=== PATIENT | male | born 1950 | race Caucasian/White ===

== ENCOUNTER 2022-04-15 07:00 | Day surgery (SDC) | payer OTHER ==
[~2022-04-15] VITALS: Ht 139.7 cm; Wt 63.5 kg
[~2022-04-15 07:00] MED LIST: CEFAZOLIN SOD 1 GM/ ISO 50 ML PREMIX IV ONE
[2022-04-15] MEDS ORDERED: ACETAMINOPHEN I.V. 1000 MG 100 ML IV ONE (10:26)
[2022-04-15] MEDS ORDERED: ROCURONIUM BROMIDE 10 MG/ML (ZEMURON) IV ONE (10:30)
[2022-04-15] MEDS ORDERED: fentaNYL CITRATE 250 MCG/5 ML AMP IV ONE (10:30)
[2022-04-15] MEDS ORDERED: WATER FOR IRRIGATION,STERILE 1,000 ML IRRIG.SOLN IR ONE (10:30)
[2022-04-15] MEDS ORDERED: SEVOFLURANE 15 MIN GAS INH ONE (10:30)
[2022-04-15] MEDS ORDERED: BUPIVACAINE /PF 0.25% 30 ML VIAL INJ ONE (10:30)
[2022-04-15] MEDS ORDERED: LR 1,000 ML IV.SOLN IV ONE (10:30)
[2022-04-15] MEDS ORDERED: MIDAZOLAM HCL 5 MG/5 ML VIAL IVP ONE (10:30)
[2022-04-15] MEDS ORDERED: PROPOFOL 200MG/ 20ML VIAL (DIPRIVAN) IV ONE (10:30)
[2022-04-15] MEDS ORDERED: KETOROLAC TROMETHAMINE 30 MG VIAL IVP ONE (10:30)
[2022-04-15] MEDS ORDERED: DEXAMETHASONE SOD PHOSPHATE 4 MG/ML VIAL IVP ONE (10:30)
[2022-04-15] MEDS ORDERED: ONDANSETRON HCL 4 MG/2 ML VIAL IVP ONE (10:30)
[2022-04-15] MEDS ORDERED: hydrALAZINE HCL 20 MG/ML VIAL IVP PRN (11:15)
[2022-04-15] MEDS ORDERED: MEPERIDINE HCL/PF 25 MG/ML DISP.SYRIN IVP PRN (11:15)
[2022-04-15] MEDS ORDERED: LR 1,000 ML IV SCH (11:15)
[2022-04-15] MEDS ORDERED: MIDAZOLAM HCL 2 MG/2 ML VIAL (VERSED) IVP PRN (11:15)
[2022-04-15] MEDS ORDERED: HYDROmorphone 1 MG/ML INJ. CARTRIDGE IVP PRN ×2 (11:15)
[2022-04-15] MEDS ORDERED: METOCLOPRAMIDE HCL 10 MG/2 ML VIAL IVP PRN (11:15)
[2022-04-15] MEDS ORDERED: LABETALOL 100 MG/ 20ML VIAL IVP PRN (11:15)
[2022-04-15] MEDS ORDERED: D5/0.45 NS 1,000 ML IV SCH (11:45)
[2022-04-15] MEDS ORDERED: HYDROcodone/ACETAMIN 5-325 MG TAB (NORCO/ VICODIN) PO PRN (14:00)
[2022-04-15 14:12] VITALS: BP_SYST 133
== END 2022-04-15 14:00 | disposition home or self-care (01) ==
LOC: SDS 07:00 → SMU 07:01 → EDSTATUS 13:50 → SDS 14:00
PROVIDERS: ATTEND Colon & Rectal Surgery
DX: K40.90 Unilateral inguinal hernia, without obstruction or gangrene, not specified as recurrent (principal); I48.91 Unspecified atrial fibrillation; I10 Essential (primary) hypertension; Z87.891 Personal history of nicotine dependence; Z20.822 Contact with and (suspected) exposure to COVID-19; Z79.899 Other long term (current) drug therapy
CPT/HCPCS: 36415 ×2; 49505; 87426; C1781; J0131; J0690; J1100; J1885; J2250; J2405; J2704; J3010; J3490; J7120; U0003

== ENCOUNTER 2023-10-10 12:10 | Observation (INO) | payer OTHER ==
[~2023-10-10] VITALS: Ht 170.2 cm; Wt 63.2 kg
[2023-10-10 12:18] VITALS: BP_SYST 153; PULSE 109; RESP 19; TEMP 98; O2SAT 89
[2023-10-10] MEDS ORDERED: MORPHINE 4 MG INJ. 4 MG/ML VIAL IVP ONE (13:15)
[2023-10-10] MEDS ORDERED: ONDANSETRON HCL 4 MG/2 ML VIAL IVP ONE (13:15)
[2023-10-10 13:31] LABS: BASOPHILS % (AUTO) 0.4 % (0.0-2.0); HEMATOCRIT 42.1 % (36-54); LYMPHOCYTES # (AUTO) 0.5 K/uL (1.0-5.5); LYMPHOCYTES % (AUTO) 5.2 % (20.5-51.5); MEAN CORPUSCULAR HEMOGLOBIN 32 pg (27-31); MEAN CORPUSCULAR HGB CONC 33 % (32-36); MEAN CORPUSCULAR VOLUME 96 fL (79.0-98.0); MONOCYTES # (AUTO) 0.9 K/uL (0.0-1.0); MONOCYTES % (AUTO) 9.5 % (1.7-9.3); NEUTROPHILS % (AUTO) 84.9 % (40.0-70.0); PLATELET COUNT (AUTO) 269 K/uL (130-430); RED CELL DISTRIBUTION WIDTH 14.8 % (9.0-15.0); WHITE BLOOD COUNT (AUTO) 9.5 K/uL (4.8-10.8)
[2023-10-10 13:35] LABS: ANION GAP 11 (5-15); CALCIUM 9.5 mg/dL (8.4-11.0); CARBON DIOXIDE 25 mmol/L (23-29); CHLORIDE 99 mmol/L (98-107); CREATININE 0.93 mg/dL (0.55-1.30); GLUCOSE 119 mg/dL (74-106); POTASSIUM 4.3 mmol/L (3.5-5.1); SODIUM SERUM 135 mmol/L (136-145); UREA NITROGEN, BLOOD 21 mg/dL (8-21)
[2023-10-10 13:40] LABS: ALANINE AMINOTRANSFERASE 19 U/L (12-78); ALBUMIN 3.3 g/dL (3.4-4.8); ASPARTATE AMINOTRANSFERASE 30 U/L (10-37); BILIRUBIN,DIRECT 0.8 mg/dL (0.0-0.3); TOTAL BILIRUBIN 1.4 mg/dL (0.0-1.0); TOTAL PROTEIN, SERUM 8.4 g/dL (6.4-8.3)
[2023-10-10 13:41] LABS: INR 1.3 (0.80-1.20); PROTHROMBIN TIME 13.4 SECS (9.5-12.5)
[2023-10-10] MEDS ORDERED: APIX5TAB PO (14:27)
[2023-10-10] MEDS ORDERED: FURO40TA5 PO (14:27)
[2023-10-10] MEDS ORDERED: METO-540 PO (14:27)
[2023-10-10] MEDS ORDERED: MORPHINE 2 MG/ML INJ. SYRINGE IVP ONE (19:30)
[2023-10-11] VITALS (8 sets, daily range): BP systolic 104–119; PULSE 92–116; RESP 16–19; TEMP 97.7–98.6; O2SAT 95–97
[2023-10-11] MEDS: MORPHINE 4 MG INJ. 4 MG/ML VIAL IVP PRN ×4 (01:45→20:51)
[2023-10-11] MEDS ORDERED: MELOXICAM 7.5 MG TABLET PO PRN (14:00)
[2023-10-11] MEDS ORDERED: traMADol HCL HCL 50 MG TABLET (ULTRAM) PO PRN (18:45)
[2023-10-12 00:56] VITALS: BP_SYST 111; PULSE 112; RESP 16; TEMP 97.8; O2SAT 95
[2023-10-12 07:00] VITALS: O2SAT 98
[2023-10-12] MEDS: MORPHINE 2 MG/ML INJ. SYRINGE IVP PRN ×3 (09:37→23:15)
[2023-10-12 12:51] VITALS: BP_SYST 113; PULSE 107; RESP 17; TEMP 97.6; O2SAT 94
[2023-10-12 16:30] VITALS: BP_SYST 116; PULSE 100; RESP 16; TEMP 98; O2SAT 94
[2023-10-12] MEDS: POLYETHYLENE GLYCOL 3350, 17 GM/ POWD.PACK PO SCH (17:33)
[2023-10-12 20:00] VITALS: BP_SYST 119; PULSE 100; RESP 17; TEMP 98.2; O2SAT 94; O2SAT 95
[2023-10-12] MEDS: APIXABAN 2.5 MG TABLET PO SCH (21:00)
[2023-10-13] VITALS (8 sets, daily range): BP systolic 120–139; PULSE 60–121; RESP 16–18; TEMP 98–99.3; O2SAT 93–100
[2023-10-13] MEDS: POLYETHYLENE GLYCOL 3350, 17 GM/ POWD.PACK PO SCH ×2 (06:22→17:00)
[2023-10-13] MEDS: APIXABAN 2.5 MG TABLET PO SCH ×2 (09:00→21:00)
[2023-10-13] MEDS ORDERED: traMADol HCL HCL 50 MG TABLET (ULTRAM) PO PRN (09:45)
[2023-10-13] MEDS: FUROSEMIDE 40 MG TABLET PO SCH (09:59)
[2023-10-13] MEDS: METOPROLOL SUCCINATE 25 MG TAB.SR.24H (TOPROL XL) PO SCH (10:00)
[2023-10-14] VITALS (7 sets, daily range): BP systolic 118–127; PULSE 96–108; RESP 15–20; TEMP 97.5–98.4; O2SAT 94–100
[2023-10-14] MEDS: MORPHINE 4 MG INJ. 4 MG/ML VIAL IVP PRN (02:37)
[2023-10-14 04:13] LABS: BASOPHILS % (AUTO) 0.4 % (0.0-2.0); EOSINOPHILS % (AUTO) 0.3 % (0.0-4.0); HEMATOCRIT 40.3 % (36-54); HEMOGLOBIN 13.7 g/dL (14.0-18.0); LYMPHOCYTES # (AUTO) 0.5 K/uL (1.0-5.5); LYMPHOCYTES % (AUTO) 8.2 % (20.5-51.5); MEAN CORPUSCULAR HEMOGLOBIN 32 pg (27-31); MEAN CORPUSCULAR HGB CONC 34 % (32-36); MEAN CORPUSCULAR VOLUME 95 fL (79.0-98.0); MONOCYTES # (AUTO) 0.9 K/uL (0.0-1.0); MONOCYTES % (AUTO) 14.2 % (1.7-9.3); NEUTROPHILS # (AUTO) 4.8 K/uL (1.8-7.7); NEUTROPHILS % (AUTO) 76.9 % (40.0-70.0); PLATELET COUNT (AUTO) 218 K/uL (130-430); RED BLOOD CELL COUNT(AUTO) 4.23 MIL/uL (4.2-6.2); RED CELL DISTRIBUTION WIDTH 14.2 % (9.0-15.0); WHITE BLOOD COUNT (AUTO) 6.2 K/uL (4.8-10.8)
[2023-10-14 04:14] LABS: ANION GAP 7 (5-15); CALCIUM 8.9 mg/dL (8.4-11.0); CARBON DIOXIDE 32 mmol/L (23-29); CHLORIDE 98 mmol/L (98-107); CREATININE 0.72 mg/dL (0.55-1.30); GLUCOSE 99 mg/dL (74-106); POTASSIUM 3.8 mmol/L (3.5-5.1); SODIUM SERUM 137 mmol/L (136-145); UREA NITROGEN, BLOOD 13 mg/dL (8-21)
[2023-10-14] MEDS: POLYETHYLENE GLYCOL 3350, 17 GM/ POWD.PACK PO SCH ×2 (07:00→16:28)
[2023-10-14] MEDS: FUROSEMIDE 40 MG TABLET PO SCH (09:42)
[2023-10-14] MEDS: METOPROLOL SUCCINATE 25 MG TAB.SR.24H (TOPROL XL) PO SCH (09:43)
[2023-10-14] MEDS: APIXABAN 2.5 MG TABLET PO SCH (09:48)
[2023-10-14] MEDS ORDERED: TRAM50TA2 PO (11:00)
[2023-10-14] MEDS: MORPHINE 2 MG/ML INJ. SYRINGE IVP PRN (15:40)
== END 2023-10-14 18:00 ==
LOC: SED 12:10 → SMU 19:51
PROVIDERS: ADMIT Specialist; ATTEND Specialist
DX: S32.019A Unspecified fracture of first lumbar vertebra, initial encounter for closed fracture (principal); S32.049A Unspecified fracture of fourth lumbar vertebra, initial encounter for closed fracture; M19.90 Unspecified osteoarthritis, unspecified site; I48.91 Unspecified atrial fibrillation; I11.0 Hypertensive heart disease with heart failure; I50.9 Heart failure, unspecified; E78.5 Hyperlipidemia, unspecified; W01.0XXA Fall on same level from slipping, tripping and stumbling without subsequent striking against object, initial encounter; Y93.01 Activity, walking, marching and hiking; Y92.89 Other specified places as the place of occurrence of the external cause; Y99.8 Other external cause status
CPT/HCPCS: 96374; 96375; 96376 ×4; 80076; 80048 ×2; 83880; 85025 ×2; 85610; 85730; 84484; 36415 ×2; 93005; 71045; 72128; 72131; 72192; 76376; 99285; 97116 ×2; 97163; 97166; 97530; J2405; J2270 ×6; G0378 ×5; 97110-GO; 97535-GO